=== PATIENT | male | born 1965 | race Caucasian/White ===

== ENCOUNTER 2019-03-20 12:42 | Day surgery (SDC) | payer OTHER ==
[~2019-03-20] VITALS: Ht 175.3 cm; Wt 79.8 kg
--- NOTE | ~2019-03-20 | OR ---
[facility] [address], [place] [address] Draft DATE OF OPERATION: 03/20/2019 SURGEON: Sharmila Briseno MD PREOPERATIVE DIAGNOSIS: Colon screening. POSTOPERATIVE DIAGNOSIS: Minimal diverticular changes in sigmoid, no polyps. PROCEDURE PERFORMED: Total colonoscopy to cecum. ANESTHESIA: Intravenous sedation, fentanyl 100 mcg, Versed 5 mg. INDICATION: This 53-year-old white man is guzman from the [facility] and referred by Dr. Ferrell for screening colonoscopy. He has no complaints of bleeding diarrhea or constipation. He has no family history of colon cancer. He has never had a colonoscopy in the past. He understands risks of colonoscopy including but not limited to bleeding, infection, and perforation and wished to proceed. FINDINGS: The prep was good. Complete colonoscopy was undertaken to the cecum without question. The appendiceal orifice was well identified as was the ileocecal valve. There were several diverticula of sigmoid and left colon, but no other findings of concern, specifically no polyps, no colitis, and no other abnormality. DESCRIPTION OF PROCEDURE: The patient was brought to the endoscopy suite and placed in lateral decubitus position. Given intravenous sedation to the point of slurred speech and nystagmus with full cardiopulmonary monitoring. Digital rectal examination showed external hemorrhoid, not acutely inflamed. The Olympus video colonoscope was passed in the rectum and manipulated throughout the colon ultimately intubating the cecum itself. The ileocecal valve and appendiceal orifice were normal. The scope was withdrawn from that point. Examination throughout undertaken showed no sign of abnormality other than a few scattered diverticula of the left colon and sigmoid. Retroflexed view of the rectum was normal as well. The scope was removed. The patient was taken to recovery room in good condition. PATIENT NAME: LUPILLO MAX OPERATIVE REPORT DATE OF : 69 REPORT #: [id number] PHYSICIAN: SHARMILA BRISENO MD PCP: EVER FERRELL MD REPORT IS CONFIDENTIAL AND NOT TO BE RELEASED WITHOUT AUTHORIZATION [facility] [address], [place] [address] Draft CONCLUDING DIAGNOSIS: Minimal diverticular changes, no sign of polyps. PLAN: Recommend repeat colonoscopy in 10 years, sooner if clinically indicated. Recommend high-fiber diet as well. He will return to the ongoing care of Dr. Ferrell in [place]. MD DESHAWN Perez/MODL /[id number] cc: Ever Ferrell MD Copies: EVER FERRELL MD ~ PATIENT NAME: LUPILLO MAX OPERATIVE REPORT DATE OF : 69 REPORT #: [id number] PHYSICIAN: SHARMILA BRISENO MD PCP: EVER FERRELL MD REPORT IS CONFIDENTIAL AND NOT TO BE RELEASED WITHOUT AUTHORIZATION
[2019-03-20] MEDS ORDERED: MULTIVITAMINS1 EAC7 PO (13:10)
--- NOTE | 2019-03-20 14:47 | NUR ---
03/20/19 1447 Dahlia Clarke SN 1427- PT ARRIVES IN PACU. RESSP EVEN AND UNLABORED. 02 SATS HIGH 90'S ON 3 L VIA NC. C02 [address] IN [address]. PT EYES OPEN AND PT IS RESPONSIVE TO VERBAL AND NOXIOUS STIMULI. PT DENIES PAIN NAUSEA AND DIZZINESS AT THIS TIME. 1428- PT OFFERRED PO FLUIDS. PT IS CONVERSING WITH STAFF. PT IS ASSISTED TO SEMI FOWLERS, TOLERATING WELL. WATER PROVIDED AND PTTOLERATING WELL. RESPS EVEN AND UNLABORED AND PTDENIES PAIN NAUSEA AND DIZZINESS AT THIS TIME. 1433- PT O2 REMOVED. TOLERATING WELL. RESPS EVEN AND UNLABROED. 02 SATS REMAIN HIGH 90'S ON RA. PT DENIES ANY PAIN NAUSEA AND DIZZINESS. 1434- PT REPORTS FEELING THOUGH THERE IS AN ACCUMULATION OF GAS IN HIS STOMACH. EDUCATION WAS PROVIDED ON CAUSE OF THIS AND INTERVENTIONS TO RELIEVE THIS. PT REPORTS THAT HE IS ABLE TO PASS FLATUS AT THIS TIME.
== END 2019-03-20 15:10 | disposition home or self-care (01) ==
LOC: OPS 12:42 → DS 12:42 → OPS 14:00
PROVIDERS: Surgery
PROC: 0DJD8ZZ Inspection of Lower Intestinal Tract, Via Natural or Artificial Opening Endoscopic (ICD-10-PCS; principal; 2019-03-20 14:00)
DX: Z12.11 Encounter for screening for malignant neoplasm of colon (principal); K57.30 Diverticulosis of large intestine without perforation or abscess without bleeding; Z87.81 Personal history of (healed) traumatic fracture
CPT/HCPCS: 99153; G0500; J2250; J3010; J7120